=== PATIENT | male | born 1985 | race Caucasian/White ===

== ENCOUNTER → 2016-10-10 | Outpatient (CLI) | payer BC | LOC: LAB 19:16 | DX: J02.8 Acute pharyngitis due to other specified organisms (principal); B37.9 Candidiasis, unspecified ==

== ENCOUNTER → 2016-11-01 | Outpatient (CLI) | payer BC | LOC: LAB 07:53 | DX: J02.8 Acute pharyngitis due to other specified organisms (principal) ==

== ENCOUNTER → 2016-11-23 | Outpatient (CLI) | payer BC | LOC: LAB 14:17 | DX: J31.2 Chronic pharyngitis (principal) ==

== ENCOUNTER → 2019-08-14 | Outpatient (CLI) | payer BC ==
[2018-02-17 14:24] VITALS: BP 128/85
[2019-08-14 09:13] LABS: ALBUMIN 4.2 g/dL (3.5-5.0); POTASSIUM 4.3 mmol/L (3.5-5.1)
[2019-08-14 09:15] LABS: CALCIUM 9.4 mg/dL (8.3-10.5)
[2019-08-14 09:16] LABS: TOTAL PROTEIN 7.1 g/dL (6.4-8.3)
[2019-08-14 09:18] LABS: TOTAL BILIRUBIN 0.6 mg/dL (0.2-1.2)
[2019-08-14 09:23] LABS: EOS # 0.2 (0.04-0.40); EOS % 2.3 % (0.0-4.0); HEMATOCRIT 48.8 % (42.0-52.0); HEMOGLOBIN 16.8 g/dL (13.5-18.0); LYMPH# 2.6 (1.50-4.00); MEAN CELL VOLUME 86 fl (78-100); MEAN CORPUSCULAR HEMOGLOBIN 29 pg (27-31); MEAN CORPUSCULAR HGB CONC 34 g/dL (33-37); MONO # 0.7 (0.20-0.80); NEU # 3.4 (1.40-6.50); PLATELET COUNT 277 K/mm3 (130-400); RED BLOOD COUNT 5.71 M/mm3 (4.20-5.60); WHITE BLOOD COUNT 6.9 K/mm3 (4.8-10.8)
[2019-08-14 09:32] LABS: URINE APPEARANCE CLEAR; URINE COLOR YELLOW
[2019-08-14 09:33] LABS: URINE BILIRUBIN NEGATIVE (NEGATIVE); URINE BLOOD NEGATIVE (NEGATIVE); URINE GLUCOSE NEGATIVE (NEGATIVE); URINE KETONE NEGATIVE (NEGATIVE); URINE LEUKOCYTE ESTERASE NEGATIVE (NEGATIVE); URINE NITRATE NEGATIVE (NEGATIVE); URINE PROTEIN(semi-quant) NEGATIVE (NEGATIVE); URINE UROBILINOGEN NORMAL (NORMAL); URINE WBC 0-1 /hpf (0-3)
== END ==
LOC: LAB 08:49
PROVIDERS: Nurse Practitioner
DX: R10.31 Right lower quadrant pain (principal)

== ENCOUNTER → 2022-04-15 | Outpatient (CLI) | payer BC | LOC: RAD 15:43 | DX: M25.511 Pain in right shoulder (principal) ==